=== PATIENT | male | born 2005 | race Caucasian/White ===

== ENCOUNTER 2024-08-19 03:08 | Inpatient (IN) | payer OTHER ==
[2024-08-19] VITALS (7 sets, daily range): BP systolic 99–126; BP diastolic 56–86; TEMP 97.7–98.5; O2SAT 97–100
[~2024-08-19] VITALS: Ht 180.3 cm; Wt 94.3 kg
[2024-08-19] MEDS ORDERED: IOHEXOL-300 100 ML VIAL IV ONE ×2 (03:42→09:47)
[2024-08-19] MEDS ORDERED: CT SWABBABLE VALVE TRANS SET 1 EA INFUS.SET MC ONE ×2 (03:42→09:47)
[2024-08-19] MEDS ORDERED: IV NS 0.9% 500 ML IV ONE (03:43)
[2024-08-19] MEDS ORDERED: FAMOTIDINE/PF INJ 20 MG/2 ML VIAL IV ONE (04:02)
[2024-08-19] MEDS ORDERED: MORPHINE SULFATE INJ 2 MG/ML DISP.SYRIN ONE (04:02)
[2024-08-19] MEDS: FAMOTIDINE/PF INJ 20 MG/2 ML VIAL IV ONE (04:03)
[2024-08-19] MEDS: MORPHINE SULFATE INJ 2 MG/ML DISP.SYRIN IV ONE (04:11)
[2024-08-19 04:18] LABS: BASOPHILS # (AUTO) 0.1 K/uL (0.0-0.2); EOSINOPHILS # (AUTO) 0.2 K/uL (0.0-0.7); HEMATOCRIT 43 % (39-51); HEMOGLOBIN 15.1 g/dL (13.5-17.5); LYMPHOCYTES # (AUTO) 2.8 K/uL (0.8-4.8); LYMPHOCYTES % (AUTO) 34.7 % (20.0-44.0); MEAN CORPUSCULAR HEMOGLOBIN 30 PG (26.0-33.0); MEAN CORPUSCULAR HGB CONC 35 g/dl (31.0-36.0); MEAN CORPUSCULAR VOLUME 87 fL (80-96); MONOCYTES # (AUTO) 0.6 K/uL (0.1-1.30); MONOCYTES % (AUTO) 7.5 % (2.0-12.0); NEUTROPHILS # (AUTO) 4.4 K/uL (1.8-8.9); NEUTROPHILS % (AUTO) 54.8 % (43.0-81.0); PLATELET COUNT (AUTO) 266 K/uL (150-450); RED BLOOD CELL COUNT(AUTO) 4.96 MIL/uL (4.5-6.0); RED CELL DISTRIBUTION WIDTH 13.7 % (11.5-15.0)
[2024-08-19] MEDS: DICYCLOMINE HCL INJ 20 MG/2 ML AMPUL IM ONE (04:27)
[2024-08-19] MEDS ORDERED: DICYCLOMINE HCL INJ 20 MG/2 ML AMPUL IM ONE (04:27)
[2024-08-19 04:31] LABS: CALCIUM, SERUM 9.7 mg/dL (8.5-10.1); CREATININE 0.9 mg/dL (0.6-1.3); POTASSIUM 3.4 mmol/L (3.5-5.1)
[2024-08-19 04:36] LABS: ALBUMIN 4.4 g/dL (3.4-5.0); BILIRUBIN,TOTAL 0.5 mg/dL (0.2-1.0); TOTAL PROTEIN, SERUM 7.7 g/dL (6.4-8.2)
[2024-08-19] MEDS: diphenhydrAMINE HCL 50 MG/ML VIAL IV ONE (05:19)
[2024-08-19] MEDS: HYDROMORPHONE 1 MG/1 ML DISP.SYRIN IV ONE (05:20)
[2024-08-19] MEDS ORDERED: MORPHINE SULFATE INJ 2 MG/ML DISP.SYRIN IV PRN (06:00)
[2024-08-19] MEDS ORDERED: Z GUARD REMEDY 4 OZ OINT TP PRN (06:00)
[2024-08-19] MEDS ORDERED: ANESTHESIA TRAY IN PYXIS 1 EA TRAY MC ONE (06:33)
[2024-08-19] MEDS: PANTOPRAZOLE 40 MG VIAL IV SCH (08:35)
[2024-08-19] MEDS: ONDANSETRON HCL/PF 4 MG/2 ML VIAL IVP PRN (08:36)
[2024-08-19] MEDS: HYDROMORPHONE 1 MG/1 ML DISP.SYRIN IV PRN ×2 (08:36→11:01)
[2024-08-19] MEDS ORDERED: IV NS 0.9% 250 ML IV ONE (09:48)
[2024-08-19] MEDS: POTASSIUM CL. PREMIX PERIPHER. 50 ML IV SCH (10:50)
[2024-08-19] MEDS: IV D5/ 0.9% NACL 1,000 ML IV PRN (10:54)
[2024-08-19] MEDS: HYDROMORPHONE INJ 2 MG/ML DISP.SYRIN IV PRN (19:26)
[2024-08-20] MEDS: LORAZEPAM INJ 2 MG/ML VIAL IV PRN (00:42)
[2024-08-20 04:00] VITALS: BP 125/70; TEMP 98.1; O2SAT 98
[2024-08-20 07:17] LABS: BASOPHILS # (AUTO) 0.1 K/uL (0.0-0.2); BASOPHILS % (AUTO) 1.3 % (0.0-2.0); EOSINOPHILS # (AUTO) 0.1 K/uL (0.0-0.7); EOSINOPHILS % (AUTO) 1.3 % (0.0-6.0); HEMATOCRIT 43 % (39-51); HEMOGLOBIN 14.9 g/dL (13.5-17.5); LYMPHOCYTES # (AUTO) 1.5 K/uL (0.8-4.8); LYMPHOCYTES % (AUTO) 16.8 % (20.0-44.0); MEAN CORPUSCULAR HEMOGLOBIN 30 PG (26.0-33.0); MEAN CORPUSCULAR HGB CONC 35 g/dl (31.0-36.0); MEAN CORPUSCULAR VOLUME 87 fL (80-96); MONOCYTES # (AUTO) 0.6 K/uL (0.1-1.30); MONOCYTES % (AUTO) 6.3 % (2.0-12.0); NEUTROPHILS # (AUTO) 6.7 K/uL (1.8-8.9); NEUTROPHILS % (AUTO) 74.3 % (43.0-81.0); PLATELET COUNT (AUTO) 231 K/uL (150-450); RED BLOOD CELL COUNT(AUTO) 4.91 MIL/uL (4.5-6.0); RED CELL DISTRIBUTION WIDTH 13.3 % (11.5-15.0)
[2024-08-20 07:35] LABS: CALCIUM, SERUM 8.9 mg/dL (8.5-10.1); CREATININE 0.8 mg/dL (0.6-1.3); POTASSIUM 3.9 mmol/L (3.5-5.1)
[2024-08-20 08:00] VITALS: BP 123/75; TEMP 97.8; O2SAT 96
[2024-08-20] MEDS ORDERED: DIVALPROEX SODIUM 500 MG TABLET.DR PO SCH (10:30)
[2024-08-20] MEDS ORDERED: risperiDONE 1 MG TABLET PO SCH (10:30)
== END 2024-08-20 10:52 | disposition left against medical advice (07) | DRG 394 ==
LOC: ER 03:19 → MEDSG1 06:04
PROVIDERS: ADMIT Nurse Practitioner Acute Care; ATTEND Nurse Practitioner Family
PROC: 0DJ08ZZ Inspection of Upper Intestinal Tract, Via Natural or Artificial Opening Endoscopic (ICD-10-PCS; principal; 2024-08-19 06:30)
DX: T18.2XXA Foreign body in stomach, initial encounter (principal); F31.64 Bipolar disorder, current episode mixed, severe, with psychotic features; K92.0 Hematemesis; W44.C1XA Sharp glass entering into or through a natural orifice, initial encounter; Y92.9 Unspecified place or not applicable; Y93.89 Activity, other specified; K29.70 Gastritis, unspecified, without bleeding; R56.9 Unspecified convulsions; Z88.0 Allergy status to penicillin; Z88.5 Allergy status to narcotic agent; Z88.8 Allergy status to other drugs, medicaments and biological substances; E87.6 Hypokalemia; Z53.29 Procedure and treatment not carried out because of patient's decision for other reasons; F90.9 Attention-deficit hyperactivity disorder, unspecified type; Z79.899 Other long term (current) drug therapy
CPT/HCPCS: 36415; 71260-TC; 74018; 80048-TC; 80053-TC; 83690-TC; 83735-TC; 84100-TC; 85025-TC; 87081-TC; A4223; G0378; J0500; J1171; J1200; J1308; J2060; J2270; J2405; J2470; J2704; J3480; J7040; J7042; J7050; Q9967